=== PATIENT | female | born 1995 | race Caucasian/White ===

== ENCOUNTER 2018-06-29 19:32 | Emergency (ER) | payer OTHER ==
[~2018-06-29] VITALS: Wt 68.4 kg
[2018-06-29] MEDS ORDERED: IBUPROFEN 600 MG TAB PO ONE (20:30)
[2018-06-29] MEDS ORDERED: IBUP-1542 PO (21:28)
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
[2018-06-29 21:43] VITALS: BP 115/59; PULSE 83; RESP 17
== END 2018-06-29 21:46 | disposition home or self-care (01) ==
LOC: FTE 19:32
DX: S00.83XA Contusion of other part of head, initial encounter (principal); S89.92XA Unspecified injury of left lower leg, initial encounter; S59.901A Unspecified injury of right elbow, initial encounter; S20.219A Contusion of unspecified front wall of thorax, initial encounter; V49.49XA Driver injured in collision with other motor vehicles in traffic accident, initial encounter
CPT/HCPCS: 71045; 73080; 73562; Z7502; Z7610